=== PATIENT | male | born 1980 | race Caucasian/White ===

== ENCOUNTER → 2017-01-02 | Outpatient (CLI) | payer BC | LOC: RAD 10:47 | PROVIDERS: ATTEND Family Medicine | DX: R51 Headache (principal); Z77.018 Contact with and (suspected) exposure to other hazardous metals | CPT/HCPCS: 70140; 70553; A9579 ==

== ENCOUNTER → 2017-01-05 | Outpatient (CLI) | payer BC | LOC: RAD 14:20 | PROVIDERS: ATTEND Family Medicine | DX: R51 Headache (principal) | CPT/HCPCS: 93880 ==

== ENCOUNTER 2017-02-06 15:49 | Emergency (ER) | payer BC ==
[~2017-02-06] VITALS: Ht 193 cm; Wt 96.4 kg
[~2017-02-06 15:49] MED LIST: HYDR1POW18 MC; LEVO125T6 PO; LSNP20T PO; PROP150T2 PO
--- OUTSIDE RECORDS SUMMARY | 2017-02-06 15:54 | XMS REPORT | Continuity of Care Document ---
Author Author [facility] Organization [facility] Address Unknown Phone Unavailable Care Team Providers Care Felled Seam Operator Chainstitch Name Role Phone Unknown, Unknown PCP Unavailable Source Comments Some departments are not documenting in the electronic medical record. If you do not see the information that you expected, contact Release of Information in the Health Information Management department at [phone] for further assistance in locating additional records.[facility] Active Allergies and Adverse Reactions No Known Allergies Current Medications Prescription Sig. Disp. Refills Start End Date Status Date propafenone (RYTHMOL) 150 Take 150 mg by mouth Active mg tablet three times daily. hydroCHLOROthiazide Take 25 mg by mouth every Active (HYDRODIURIL) 25 mg morning. tablet lisinopril (PRINIVIL; Take 20 mg by mouth Active ZESTRIL) 20 mg tablet daily. levothyroxine (SYNTHROID) Take 100 mcg by mouth Active 100 mcg tablet daily 30 minutes before breakfast. Active Problems Problem Noted Date Paroxysmal atrial fibrillation (HCC) HTN (hypertension) Most Recent Encounters Date Type Specialty Providers Description 11/19/2016 Telephone Cardiology Susie Juárez LPN Appointment Request - Cancel appointment on 11/25/16 11/19/2016 Telephone Cardiology Judith Ervin RN Other - request records Social History Tobacco Use Types Packs/Day Years Used Date Never Smoker Smokeless Tobacco: Current User Plan of Care Health Maintenance Due Date Last Done Comments Physical (Comprehensive) 1987 Exam Pertussis Vaccine 1991 Tetanus Vaccine 1997 Influenza Vaccine 06/12/2017 Results from Last 3 Months Not on file
--- OUTSIDE RECORDS SUMMARY | 2017-02-06 15:54 | XMS REPORT | Continuity of Care Document ---
Author Author [facility] Organization [facility] Address Unknown Phone Unavailable Care Team Providers Care Boiler Out Name Role Phone Unknown, Unknown PCP Unavailable Source Comments Some departments are not documenting in the electronic medical record. If you do not see the information that you expected, contact Release of Information in the Health Information Management department at [phone] for further assistance in locating additional records.[facility] Active Allergies and Adverse Reactions No Known [...]
[2017-02-06] MEDS ORDERED: SUVO10TA PO (16:31)
[2017-02-06] MEDS ORDERED: ESCI20TA PO (16:31)
[2017-02-06] MEDS ORDERED: HCT25T PO (16:31)
[2017-02-06] MEDS ORDERED: ALPR.25T PO (16:31)
[2017-02-06] MEDS ORDERED: ALPRAZolam 0.25 MG (XANAX) TAB PO ONE (17:20)
[2017-02-06 17:33] LABS: BASOPHILS % (AUTO) 0 % (0-2); EOSINOPHILS # (AUTO) 0.1 10^3uL; EOSINOPHILS % (AUTO) 1 % (0-4); LYMPHOCYTES # (AUTO) 1.4 X10^3; MEAN CORPUSCULAR HEMOGLOBIN 30.5 PG (26.0-34.0); MEAN CORPUSCULAR VOLUME 84 FL (80-100); MEAN PLATELET VOLUME 9.9 FL (6.0-9.5); MONOCYTES # (AUTO) 0.5 X10^3; MONOCYTES % (AUTO) 8 % (3-11); NEUTROPHILS # (AUTO) 4.5 X10^3; NEUTROPHILS % (AUTO) 69 % (51-67); PLATELET COUNT 253 10^3uL (150-450); WHITE BLOOD COUNT 6.47 10^3uL (4.0-11.0)
[2017-02-06 17:34] LABS: ALBUMIN 4.8 g/dL (3.4-5.0); ANION GAP 16.7 MEQ/L (3-15); CALCULATED IONIZED CALCIUM 4.1 mg/dL (3.8-4.6); TOTAL PROTEIN 7.8 g/dL (6.4-8.5)
[2017-02-06 17:39] LABS: MEAN CORPUSCULAR HGB CONC 36.4 g/dL (31.0-37.0)
--- NOTE | 2017-02-06 18:42 | NUR ---
INFORMATION FAXED TO [facility] FOR POSSIBLE PT ADMIT.
[2017-02-06] MEDS ORDERED: LORazepam 2 MG/ML (ATIVAN) 1 ML VIAL IM ONE (19:55)
[2017-02-06 20:02] LABS: AMPHETAMINE SCREEN, URINE Negative (Negative); CANNABINOID SCREEN, URINE Negative (Negative); METHAMPHETAMINE SCREEN URINE S NEGATIVE (NEGATIVE); OPIATE SCREEN URINE Negative (Negative); PROPOXYPHENE STAT POSITIVE (NEGATIVE)
--- NOTE | 2017-02-06 21:05 | NUR ---
[facility] BACK AFTER MULTIPLE ATTEMPTS OF CONTACTING THEM BACK FOR ADMISSION. WAS TOLD BY STAFF MEMBER THAT IT WOULD BE AT LEAST 30 MINUTES BEFORE THEY GOT BACK WITH US REGARDING THEIR DECISION. Addendum: 02/06/17 at 2132 by [id number] PV STAFF MEMBER SUGGESTED THAT WE LOOK AT OTHER PLACEMENT OPTIONS.
--- NOTE | 2017-02-06 21:06 | NUR ---
CALLED [facility] TO ASK ABOUT PSYCH PLACEMENT FOR PT. SPOKE WITH [facility] ON THEIR UNIT, SHE TOOK PT INFORMATION. REQUESTED INFORMATION FAXED TO [facility]. SHE WILL FORWARD THE RECORDS TO THEIR PHYSICIAN AND CALL US BACK WITH A DECISION.
--- NOTE | 2017-02-06 21:28 | NUR ---
RECEIVED A CALL FROM [facility]. SHE STATES THEIR PHYSICIAN DECLINES TO ACCEPT PT D/T PT NOT BEING SUICIDAL, HOMICIDAL OR PSYCHOTIC AT THIS TIME.
--- NOTE | 2017-02-06 22:02 | NUR ---
PT RESTING W [facility] CLOSED BOTH [facility] AND [facility] HAVE DECLINED TO ADMIT HIM HE DOES NOT MEET CRITERIA
--- NOTE | 2017-02-06 22:10 | NUR ---
DR ARMANDO SPOKE WITH PTS PT HAS BEEN SAYING HE HAS BEEN HAVING DARK THOUGHTS. REPORTS PT HAS BEEN OBSESSED WITH , AND HAS BEEN SELF MEDICATING WITH ALCOHOL AND AMBIEN., REPORTS WORRY SHE MAY COME HOME AND FIND HIM
--- NOTE | 2017-02-06 22:14 | NUR ---
PER [facility] IF PT HAS SUICIDAL THOUGHTS AND PLAN THEN HE WOULD MEET CRITERIA
[2017-02-07] MEDS ORDERED: ALPRAZolam 0.25 MG (XANAX) TAB PO ONE (00:55)
[2017-02-07 01:03] VITALS: BP 137/90
--- NOTE | 2017-02-07 01:08 | NUR ---
[facility] IS TRANSPORTING A CODE RED WITH ANOTHER PT AND THEY SAID THAT THEY WILL BE APPROX 1 HR DELAY ING TRANSPORTING MR DSOUZA. THIS DUE TO NEED OF FIELD SERVICES MANAGER LEFT IN TOWN FOR EMERGENT CALL
--- NOTE | 2017-02-07 01:20 | NUR ---
DID CALL [facility] RN [facility] TO LET HER KNOW OF DELAY IN TRANSFER ALSO EXPLAINED TO PT AND HIS REASON FOR DELAY IN TRANSFER
== END 2017-02-07 02:39 ==
LOC: ED 15:50
DX: F41.1 Generalized anxiety disorder (principal); E06.3 Autoimmune thyroiditis; F32.9 Major depressive disorder, single episode, unspecified
CPT/HCPCS: 36415; 80053; 80307; 80320; 80329; 83735; 84439; 84443; 85025; 96372; 99283; J2060

== ENCOUNTER → 2017-02-07 | Outpatient (CLI) | payer BC ==
[~2017-02-07] MED LIST changes: +ALPR.25T PO; +ESCI20TA PO; +HCT25T PO; +SUVO10TA PO
== END ==
LOC: EMS 02:36
DX: R45.851 Suicidal ideations (principal); F41.8 Other specified anxiety disorders